=== PATIENT | male | born 1985 | race Caucasian/White ===

== ENCOUNTER 2023-07-10 13:32 | Emergency (ER) | payer OTHER, SELFPAY ==
--- NOTE | ~2023-07-10 | XR_ITS ---
Examination: XR foot RT min 3V, XR ankle RT min 3V Indication: right foot/ankle pain Comparison: No pertinent prior studies are currently available for comparison. Technique: 4 views of the right ankle and 3 additional views the right foot obtained Findings: Significant soft tissue swelling is seen about the lateral ankle. Underlying bony structures appear to be intact with no acute fracture or dislocation. Ankle mortise appears be intact. No significant acute bony abnormalities within the visualized portions of the foot either. XR/XR ankle RT min 3V Impression: Significant soft tissue swelling about the lateral ankle but no acute underlying fracture or dislocation.
--- NOTE | ~2023-07-10 | XR_ITS ---
Examination: XR foot RT min 3V, XR ankle RT min 3V Indication: right foot/ankle pain Comparison: No pertinent prior studies are currently available for comparison. Technique: 4 views of the right ankle and 3 additional views the right foot obtained Findings: Significant soft tissue swelling is seen about the lateral ankle. Underlying bony structures appear to be intact with no acute fracture or dislocation. Ankle mortise appears be intact. No significant acute bony abnormalities within the visualized portions of the foot either. XR/XR foot RT min 3V Impression: Significant soft tissue swelling about the lateral ankle but no acute underlying fracture or dislocation.
[2023-07-10 14:45] VITALS: BP 105/34; PULSE 51; RESP 20; TEMP 36.2; O2SAT 98; BMI 19.6
--- NOTE | 2023-07-10 14:45 | ED_ITS ---
HPI - Extremity Injury (Lower) General Chief Complaint: Extremity Injury, Lower Stated Complaint: l ankle inj Time Seen by Provider: 07/10/23 15:04 Source: patient Mode of arrival: ambulatory Limitations: no limitations History of Present Illness HPI Narrative: 29-year-old male history of spinal fusion, opiate use d/o on suboxone presenting to the emergency department with complaints of right ankle pain & foot pain since last night, patient reports he was walking, stepped into a ditch, rolled his ankle outward, since then has been having pain, swelling, worse with range of motion better at rest. Denies numbness & tingling, fevers, chills. Denies previous issue w/ r ankle. Hasnt taken anything for pain. Related Data Previous Rx's Medication Instructions Recorded ketorolac 10 mg tablet 10 mg PO TID PRN pain 5 days #15 07/10/23 tabs Allergies Allergy/AdvReac Type Severity Reaction Status Date / Time amoxicillin [AMOXICILLIN] Allergy Unknown UNKNOWN Unverified 07/11/20 19:26 Review of Systems Review of Systems: Constitutional : No Weight loss, No Fever, No Chills, No Fatigue, No Malaise ENT/Mouth : No sore throat, No Rhinorrhea Eyes: No Eye Pain, No Swelling, No Redness Cardiovascular : No Chest Pain, No SOB, No Dyspnea on Exertion, No Orthopnea, No Edema, No Palpitations Respiratory : No Cough, No Sputum, No Wheezing Gastrointestinal : No Nausea, No Vomiting, No Diarrhea, No Constipation, No abdominal Pain, No Hematochezia, No Melena Genitourinary : No Dysuria, No Urinary Frequency, No Hematuria, Musculoskeletal : + joint pain, No Myalgias, + Joint Swelling Skin : No Skin Lesions, No rash Neuro : No Weakness, No Numbness, No Dizziness, No Headache Psych : No Anxiety/Panic, No Depression All other systems reviewed and are negative Yes all other systems are reviewed and are negative [facility] Past Medical History Attestation statement: The following information was validated with the patient. Source: old records reviewed and nursing notes reviewed Physical Exam Vital Signs: Vital Signs: Last Vital Signs Temp 98 F 07/10/23 15:07 Pulse 58 07/10/23 15:07 Resp 17 07/10/23 15:07 BP 94/62 07/10/23 15:13 Pulse Ox 96 07/10/23 15:07 O2 Del Method Room Air 07/10/23 15:07 BMI result Body Mass Index 19.6 vss Appearance: Alert.? Oriented X3.? No acute distress.? Head: Normocephalic, atraumatic, no step-offs or deformities Eyes: Pupils equal, round and reactive to light.? Neck: Normal inspection.? Neck supple.? CVS: Normal heart rate and rhythm.? Pulses normal.? Respiratory: No respiratory distress.? Breath sounds normal.? Abdomen: Soft and nontender.? Skin: Skin warm and dry.? Normal skin color.? Normal skin turgor.? Extremities: No lower extremity edema.? No calf ttp. 5/5 strength to bilateral upper and lower extremities + TTP to r ankle lateral malleolous and 5th metatarsal, 2+ DP,AT,PT pulses equal and b/l. no foot drop, normal sensation distally to b/l LE. Full rom to b/l ankles w/ slightly uncomfortable rom to r ankle due to pain. Ecchymosis and swelling to latral aspect of R foot and ankle. Neuro: Oriented X 3.? No motor deficit.? No sensory deficit. CN 2-12 intact Course Course Course Narrative: This is an RME: Additional HPI, ROS, PE not included below will be deferred to primary provider. This is a [id number], hx of spinal fusion, presenting to the emergency department with a complaint of right ankle pain since last night. Pt states that he stepped in a small hole and his ankle twisted. He states pain with ambula tion. Right ankle with exquiste TTP to the lateral mallelous and fifth metatarsal. Plan: Xray right ankle and foot Reevaluation(s) Reevaluation #1: Patient requesting to leave, imaging is taking too long according to patient. Will give air cast, crutches advised him to follow-up with orthopedic team I suspect this is a sprain/ strain. I do not appreciate a fracture on my interpretation of x-ray. Educated patient on diagnosis and treatment plan, answered all question, patient verbalizes understanding. At this time patient will be discharged home, advised to return with new or worsening symptoms. Educated on worrisome signs and symptoms and when to return. At this time I feel comfortable discharge home. Time: 15:52 Medications Administered Discontinued Medications Generic Name Dose Route Start Last Admin Trade Name Preethi PRN Reason Stop Dose Admin Ketorolac Tromethamine 30 mg 07/10/23 15:17 07/10/23 15:25 Ketorolac Tromethamine 15 Mg/Ml Vial IM 07/10/23 15:18 Not Given ONCE ONE Medical Decision Making Medical Decision Making [facility] Narrative: 1513 37-year-old male presents with right ankle pain & foot pain and swelling status post rolling his ankle yesterday. Physical exam significant for No lower extremity edema.? No calf ttp. 5/5 strength to bilateral upper and lower extremities + TTP to r ankle lateral malleolous & 5th metattarsal, 2+ DP,AT,PT pulses equal and b/l. no foot drop, normal sensation distally to b/l LE Full rom to b/l ankles w/ slightly uncomfortable rom to r ankle due to pain. Ecchymosis and swelling to latral aspect of R foot and ankle. history and physical exam concerning for possible fracture, dislocation, sprain or strain. Unlikely neurovascular compromise, threat to Jones. Plan at this time imaging. Differential Diagnosis Differential Diagnoses: The differential diagnosis associated with the presentation includes history and physical exam concerning for possible fracture, dislocation, sprain or strain. Unlikely neurovascular compromise, threat to Jones. Admission/Observation Consideration of admission/observation: Escalation of care including admission/observation considered Unlikely Independent Interpretation I performed an independent interpretation of an: Plain X-Ray Radiology Impression Discussion of test interpretation with radiology: I have reviewed the radiologist's reading. Critical Care Time Critical Care Time Critical Care Time: No Discharge Plan Discharge Clinical Impression: Acute right ankle pain Patient Disposition: Home, Self-Care Additional Instructions: Take your medications as prescribed. If you were prescribed antibiotics today, it is important that you take your medication to their entirety, do not skip any doses, do not finish them early. Follow-up with your primary care provider this week. follow-up with the orthopedic team. Return to the emergency department with new or worsening symptoms. Such as fevers, chills, chest pain, shortness of breath, nausea, vomiting, dizziness, headache, vision changes, lethargy In case of emergency call 911 Toradol has been sent to your pharmacy, you tolerated this well in the department. Please take this as prescribed do not take this with ibuprofen, or other NSAIDs, do not mix this with alcohol. Side effects of this medication including increased risk for bleeding and possible kidney injury. Scripts sent to [facility] Prescriptions: New ketorolac 10 mg tablet 10 mg PO TID PRN (Reason: pain) 5 Days Qty: 15 0RF Referrals: [facility] [Provider Group] - 2 days Physician,Unknown J [Primary Care Provider] - 2 days Stand Alone Forms: Work/School Release
[2023-07-10 15:07] VITALS: PULSE 58; RESP 17; TEMP 36.6; O2SAT 96
[2023-07-10 15:13] VITALS: BP 94/62
--- NOTE | 2023-07-10 15:15 | PC.NURSE ---
Blood pressure noted to be low, provider is aware and no new orders at this time.
--- OUTSIDE RECORDS SUMMARY | 2023-07-10 16:00 | XMS_ITS | Continuity of Care Document ---
Author Name Unknown Organization [facility] Address [address] [place] [address]- Care Team Providers Care General Merchandise Manager Name Role Phone Not on Staff, PCP Primary Care Physician Unavail able Encounter [facility] Date(s): 08/12/20 - 08/13/[address] [id number]- [facility] Discharge Disposition: A-D/C Home Attending Physician: Anuradha Lacy MD Admitting Physician: Anuradha Lacy MD Referring Physician: Not on Staff, Referring MD Allergies, Adverse Reactions, Alerts Substance Reaction Severity Status penicillin Active Amoxil rash Unknown Active Tylenol GI upset Active Immunizations Given and Recorded Vaccine Date Status Refusal Reason tetanus/diphtheria/pertussis, acel(Tdap) 10/25/09 Given Medications No Known Medications Problem List Condition Effective Dates Status Health Status Inform ant Backache(Confirmed) Active Low back pain(Confirmed) 1 Active Neck pain(Confirmed) Active 1s/p L5-S1 fusion Vital Signs Most recent to oldest [Reference Range]: 1 Height 185 cm (08/12/20 11:14 PM) Weight 87 kg (08/12/20 11:14 PM) Oxygen Saturation [94-100 %] 98 % (08/12/20 11:14 PM) Pulse Rate [55-90 bpm] 73 bpm (08/12/20 11:14 PM) Blood Pressure [90-138/55-84 mm Hg] 139/ 100mm Hg *H* (08/12/20 11:14 PM) Respiratory Rate [16-30 br/min] 17 br/mi n (08/12/20 11:14 PM) Temperature [96.8-100.4 DegF] 97.4 DegF (08/12/20 11:14 PM) Mode of Delivery (Oxygen) Room air (08/12/20 11:14 PM) Blood pressure sites Arm, right (08/12/20 11:14 PM) Temperature Route Temporal (08/12/20 11:14 PM) Dry Weight 87 kg (08/12/20 11:14 PM) Social History Social History Type Response Smoking Status 5-9 cigarettes (calvin ross 1/4 to 1/2 pack)/day in last 30 days entered on: 06/25/19 Sex
[2023-07-10 16:24] VITALS: BP 100/60; PULSE 65; RESP 16; O2SAT 98
== END 2023-07-10 16:25 | disposition home or self-care (01) ==
PROVIDERS: Emergency Provider Student in an Organized Health Care Education/Training Program
DX: M25.571 Pain in right ankle and joints of right foot (principal); M25.471 Effusion, right ankle
CPT/HCPCS: 73610; 73630; 99284